=== PATIENT | female | born 1965 | race Asian ===

== ENCOUNTER 2022-03-27 14:09 | Emergency (ER) | payer BC, SELFPAY ==
[2022-03-27 14:11] VITALS: BP 143/81; PULSE 87; RESP 16; TEMP 35.6; O2SAT 98; BMI 29.5
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
== END 2022-03-27 15:58 | disposition home or self-care (01) ==
PROVIDERS: Emergency Provider Emergency Medicine; Visit Provider Emergency Medicine
DX: S10.93XA Contusion of unspecified part of neck, initial encounter (principal); S20.212A Contusion of left front wall of thorax, initial encounter; V43.52XA Car driver injured in collision with other type car in traffic accident, initial encounter; Y92.410 Unspecified street and highway as the place of occurrence of the external cause; Y93.89 Activity, other specified; Y99.8 Other external cause status
CPT/HCPCS: 70360; 71046; 99282